=== PATIENT | male | born 1950 | race Caucasian/White ===

== ENCOUNTER → 2021-10-05 | Outpatient (CLI) | payer MEDICARE, OTHER | LOC: EXRD 14:25 | DX: M79.642 Pain in left hand (principal); M79.641 Pain in right hand; M25.552 Pain in left hip; G89.29 Other chronic pain | CPT/HCPCS: 73130; 73502 ==

== ENCOUNTER → 2021-10-19 | Outpatient (CLI) | payer MEDICARE, OTHER | LOC: US 09:00 | DX: Z13.6 Encounter for screening for cardiovascular disorders (principal); I77.819 Aortic ectasia, unspecified site | CPT/HCPCS: 76706 ==